=== PATIENT | female | born 1965 | race Caucasian/White ===

== ENCOUNTER 2016-07-12 09:19 | Day surgery (SDC) | payer OTHER ==
[~2016-07-12] VITALS: Ht 147.3 cm; Wt 70.0 kg
[2016-07-12 10:19] VITALS: Ht 147.3 cm; Wt 70.0 kg
[2016-07-12] MEDS ORDERED: CHOLESTEROL MED (10:24)
[2016-07-12 10:36] VITALS: BP 125/69; PULSE 57; RESP 16
[2016-07-12] MEDS ORDERED: FENTAnyl 50 MCG/ML VIAL ONE (11:07)
[2016-07-12] MEDS ORDERED: MIDAZOLAM 1 MG/ML 2 ML INJ ONE ×2 (11:08)
[2016-07-12 11:34] VITALS: BP 114/69; PULSE 55; RESP 16
--- NOTE | 2016-07-12 11:36 | GILP ---
DATE OF PROCEDURE: NAME OF PROCEDURE: Colonoscopy and biopsy. SURGEON: Wai Storm MD PREOPERATIVE DIAGNOSIS: Screening colonoscopy. POSTOPERATIVE DIAGNOSES: 1. Colonoscopy all the way to the cecum. 2. Small right colon polyp was removed using the biopsy forceps. 3. Internal hemorrhoids. INDICATION FOR THE PROCEDURE: Ms. Sandra Lorenzo is a 50-year-old female patient who w as scheduled for screening colonoscopy. The procedure and possible complications were well explained to the patient. She understood and con sented to the procedure. DESCRIPTION OF PROCEDURE: Under the influence of fentanyl and Versed the colonoscope was carefully introduced in the rectum and under direct vision it was advanced all the way to the cecum. FINDINGS: The patient had a small right colon polyp and it was removed using the biopsy forceps. S he had internal hemorrhoids. She tolerated the procedure very well and there was no complication from the procedure. At the end of the procedure she was awake with stable vital signs and she was discharged home to the care of he r family. IMPRESSION: 1. Colonoscopy all the way to the cecum. 2. Small right colon polyp was removed using the biopsy forceps. 3. Internal hemorrhoids. PLAN: Next screening colonoscopy in 10 years. Dictated By: WAI MARTINS/FLORIAN Conf#: [id number] DID#: [id number]
== END 2016-07-12 13:21 | disposition home or self-care (01) ==
LOC: GIL 09:19
PROVIDERS: ATTEND Internal Medicine Gastroenterology
DX: Z12.11 Encounter for screening for malignant neoplasm of colon (principal); K63.5 Polyp of colon; K64.8 Other hemorrhoids
CPT/HCPCS: 45380; 84703; 88305; J2250; J3010

== ENCOUNTER 2016-08-15 14:44 | Day surgery (SDC) | payer OTHER ==
[~2016-08-15] VITALS: Ht 147.3 cm; Wt 70.7 kg
[2016-08-15] VITALS (11 sets, daily range): BP systolic 108–134; BP diastolic 55–66; PULSE 52–60; RESP 13–23; Ht 147.3 cm; Wt 70.7 kg
[~2016-08-15 14:44] MED LIST: CHOLESTEROL MED
[2016-08-15] MEDS ORDERED: ATOR20TA38 PO (15:14)
[2016-08-15] MEDS ORDERED: CEFAZOLIN 1 GM INJ ONE (15:37)
[2016-08-15] MEDS ORDERED: FENTAnyl 50 MCG/ML VIAL ONE (15:37)
[2016-08-15] MEDS ORDERED: MIDAZOLAM 1 MG/ML 2 ML INJ ONE (15:37)
[2016-08-15] MEDS ORDERED: PROPOFOL 20 ML ONE (15:38)
[2016-08-15] MEDS ORDERED: BUPIVACAINE 0.5% (SDV) 30 ML INJ ONE (15:39)
[2016-08-15] MEDS ORDERED: LIDOCAINE 2% (MDV) 20 ML INJ ONE (15:39)
[2016-08-15] MEDS ORDERED: ONDANSETRON 4 MG INJ IV PRN (16:00)
[2016-08-15] MEDS ORDERED: FENTAnyl 50 MCG/ML VIAL IV PRN ×2 (16:00)
[2016-08-15] MEDS ORDERED: HYDROmorphONE (0.2 MG/ML) 10ML SYG IV PRN ×3 (16:00)
[2016-08-15] MEDS ORDERED: hydrALAzine 20 MG INJ IV PRN (16:00)
[2016-08-15] MEDS ORDERED: MEPERIDINE 25 MG INJ IV PRN (16:00)
[2016-08-15] MEDS ORDERED: LABETALOL HCL 20MG INJ IV PRN (16:00)
--- NOTE | 2016-08-15 16:14 | HPN ---
Date/Time of Note Date/Time of Note DATE: 08/15/16 TIME: 16:14 Interval H&P Admission Note Pt. seen H&P reviewed: No system changes AMARIS PRESTON DPM August 15, 2016 16:14
[2016-08-15] MEDS ORDERED: HYDROCODONE/APAP (10/325) TAB PO PRN (17:30)
--- NOTE | 2016-08-16 10:43 | RADRPT ---
PROCEDURE: XR Right Foot. CLINICAL INDICATION: The right foot pain. Postop. TECHNIQUE: Three views. Frontal, lateral, and oblique. COMPARISON: Intraoperative imaging done earlier the same day. FINDINGS: Images demonstrate a single pin transfixing the fracture of the fifth proximal phalanx of the right fifth toe. Alignment is satisfactory. There is no other fracture or dislocation. The soft tissues are unremarkable. Articular surfaces are intact. There is no lytic or blastic lesion. There is no other radiopaque foreign body. IMPRESSION: 1. Satisfactory postoperative appearance of the right foot. RPTAT: QQ .Ho Montez MD, Date Time Electronically viewed and signed by .Ho Montez MD, MD on 08/16/2016 10:42 .R/
--- NOTE | 2016-08-16 10:44 | RADRPT ---
PROCEDURE: Intraoperative imaging of the right fifth toe with fluoroscopy. CLINICAL INDICATION: Right fifth toe pain. Fracture. Intraoperative. TECHNIQUE: 16 images of the right fifth toe were obtained in the operating room with an image inte nsifier. No radiologist was in attendance. Fluoroscopy time is unobtainable. COMPARISON: No prior study is available for comparison. FINDINGS: Images demonstrate placement a single pin transfixing the fracture of the fifth proximal phalanx of the right fifth toe. Alignment is satisfactory. There is no other fracture or dislocation. IMPRESSION: 1. Satisfactory intraoperative imaging of the right fifth toe. RPTAT: QQ .Ho Montez MD, MD Date Time Electronically viewed and signed by .Ho Montez MD, on 08/16/2016 10:43 .R/
== END 2016-08-15 18:49 | disposition home or self-care (01) ==
LOC: SDS 14:44
PROVIDERS: ATTEND Podiatrist Foot & Ankle Surgery
DX: S92.521A Displaced fracture of middle phalanx of right lesser toe(s), initial encounter for closed fracture (principal); X58.XXXA Exposure to other specified factors, initial encounter; Y92.89 Other specified places as the place of occurrence of the external cause; I10 Essential (primary) hypertension; E11.9 Type 2 diabetes mellitus without complications; E66.9 Obesity, unspecified; Z68.32 Body mass index [BMI] 32.0-32.9, adult
CPT/HCPCS: 28525; 73630; 73660; 84703; J0690; J2250; J3010